=== PATIENT | female | born 1970 | race Two or more races ===

== ENCOUNTER → 2021-11-13 | Day surgery (SDC) | payer OTHER ==
[~2021-11-13] MED LIST: ALENDRONATE SOD70 MG PO; ANASTROZOLE1 MG PO; SYNTHROID88 MCG PO
== END | disposition home or self-care (01) ==
LOC: ADM 11-05 07:15 → CIR.AMB 11-12 07:30 → ADM 11-12 07:30 → CIR.AMB 06:46
PROVIDERS: ATTEND Surgery
DX: D05.02 Lobular carcinoma in situ of left breast (principal); N62 Hypertrophy of breast; Z42.1 Encounter for breast reconstruction following mastectomy; Z20.822 Contact with and (suspected) exposure to COVID-19

== ENCOUNTER 2025-09-16 23:40 | Emergency (ER) | payer OTHER ==
[~2025-09-16] VITALS: Ht 154.9 cm; Wt 63.5 kg
[2025-09-17] MEDS ORDERED: CIPROFLOXACIN IN 5 % DEXTROSE 400 MG/200 ML PIGGYBAG IV ONE (01:15)
[2025-09-17] MEDS ORDERED: 0.9 % SODIUM CHLORIDE 1,000 ML IV ONE (01:15)
[2025-09-17] MEDS ORDERED: FAMOtidine 10 MG/ML (4ML VIAL) IV ONE (01:15)
[2025-09-17] MEDS ORDERED: TAMSULOSIN HCL 0.4 MG CAP PO ONE (01:15)
[2025-09-17 02:27] LABS: BASO % 0.3 % (0.1-1.2); EOS # 0.05 (0.04-0.54); EOS % 0.5 % (0.7-7.0); LYMPH # 1.16 (1.18-3.74); LYMPH % 12.0 % (19.3-53.1); MEAN PLATELET VOLUME 9.70 fl (9.4-12.4); MONO # 0.64 (0.24-0.82); MONO % 6.6 % (4.7-12.5); NEUT # 7.76 (1.56-6.13); NEUT % 80.4 % (34.0-71.1); RED CELL DISTRIBUTION WIDTH 13.7 % (11.6-14.4)
[2025-09-17 02:54] LABS: ALT/SGPT 32.0 U/L (12-78); AST/SGOT 16.0 U/L (15-37); BILIRUBIN TOTAL 0.56 mg/dL (0.3-1.2); BUN CREA RATIO 20.0 (7.0-25.0); CREATININE SERUM 0.94 mg/dL (0.55-1.02); GFR 61.82; GLOBULINA 3.9 G/DL (2.4-3.5); GLUCOSE FASTING 102.0 mg/dL (65-100); OSMOLALITY SERUM 286.0 MOSM/KG (275-295)
[2025-09-17 03:27] LABS: URINE APPEARANCE Clear; URINE BILIRRUBIN Negative (NEGATIVE); URINE BLOOD Large; URINE COLOR Yellow; URINE GLUCOSE Negative (NEGATIVE); URINE LEUKOCYTE Moderate; URINE NITRATE Negative; URINE PROTEIN 30 (NEGATIVE); URINE UROBILINOGEN 0.2 E.U./dl
[2025-09-17 03:31] LABS: URINE BACTERIA 152.3 uL (0.0-1933); URINE EPITHELIAL CELLS 4.4 uL (0.0-38.8); URINE RBC 1001.8 uL (0.0-20.8); URINE WBC 761.9 uL (0.0-23.2)
[2025-09-17 03:37] LABS: URINE CAST 0.14 uL (0.0-1.40); URINE KETONE 40 (NEGATIVE)
[2025-09-17 04:40] LABS: INR 0.98
[2025-09-17] MEDS ORDERED: BACTRIM DS TAB1 EACH PO (04:43)
[2025-09-17] MEDS ORDERED: PYRIDIUM DS200 MG PO (04:43)
[2025-09-17] MEDS ORDERED: PEPCID AC20 MG PO (04:43)
== END 2025-09-17 04:51 | disposition home or self-care (01) ==
LOC: ER 23:40
PROVIDERS: General Practice
DX: R31.9 Hematuria, unspecified (principal); Z88.0 Allergy status to penicillin; Z91.041 Radiographic dye allergy status; R33.8 Other retention of urine; E03.8 Other specified hypothyroidism; Z85.3 Personal history of malignant neoplasm of breast; M85.88 Other specified disorders of bone density and structure, other site; N39.0 Urinary tract infection, site not specified